=== PATIENT | female | born 1975 | race Caucasian/White ===

== ENCOUNTER 2021-07-29 22:52 | Emergency (ER) | payer OTHER ==
[~2021-07-29] VITALS: Ht 160 cm; Wt 77.1 kg
[2021-07-29] MEDS ORDERED: EFFEXOR XR37.5 MG PO (23:07)
[2021-07-30] MEDS ORDERED: ATIVAN1 MG PO (02:02)
--- NOTE | 2021-07-30 12:46 | EKG ---
[facility] [address] [place], [place] [address] Signed Sinus tachycardia with short [place] Low voltage QRS Nonspecific ST and T wave abnormality Abnormal ECG No previous ECGs available Confirmed by MARY VILLAFANA DO ([id number]) on 07/30/2021 12:46:04 PM Electronically Signed By: MARY VILLAFANA DO 07/30/21 1246 PATIENT NAME: DIANDRA KWONG Electrocardiogram DATE OF : 73 PHYSICIAN: MARY VILLAFANA DO REPORT #: [id number] REPORT IS CONFIDENTIAL AND NOT TO BE RELEASED WITHOUT AUTHORIZATION
== END 2021-07-30 02:20 | disposition home or self-care (01) ==
LOC: ED 22:52
DX: F41.9 Anxiety disorder, unspecified (principal); Z88.1 Allergy status to other antibiotic agents; Z79.899 Other long term (current) drug therapy
CPT/HCPCS: 93005; 93010; 99283-25; A9270-GY